=== PATIENT | male | born 2000 | race Hispanic/Latino ===

== ENCOUNTER → 2023-05-21 17:19 | Outpatient (CLI) | payer OTHER, SELFPAY ==
[2023-05-21 18:05] LABS: Influenza A - CEPHEID Flu A POSITIVE (NEGATIVE); Influenza B - CEPHEID Flu B NEGATIVE (NEGATIVE); Respiratory Syncytial Virus Negative (Negative)
[2023-05-21 18:10] LABS: COVID-19 CEPHEID 4-PLEX PCR Negative (Negative)
== END ==
PROVIDERS: Visit Provider Nurse Practitioner Family
DX: J02.9 Acute pharyngitis, unspecified (principal); R52 Pain, unspecified; R50.9 Fever, unspecified; R68.83 Chills (without fever); R51.9 Headache, unspecified
CPT/HCPCS: 0241U; 87070; 87077; 87147